=== PATIENT | female | born 1975 | race Two or more races ===

== ENCOUNTER → 2017-12-14 | Outpatient (CLI) | payer BC ==
--- NOTE | 2017-12-14 21:46 | CONS ---
CONSULTATION [facility] from [facility] REASON FOR EVALUATION: Sleep apnea. HISTORY OF PRESENT ILLNESS: 42-year-old female patient, obese with chronic fatigue and sleepiness. The patient has loud snoring and she feels unrested all the time. She has gained around 30 pounds over the past 5 years. The patient recently was having EGD by Dr. Garcia and she was noted to have prolonged apneas. This raised suspicion for obstructive sleep apnea further. In addition, she has had a spine evaluation by Neurosurgery regarding chronic cervical spine disease and she also mentioned also at a neurosurgical evaluation she may potentially have sleep apnea and she was requested further evaluation. She has occasional grinding of the teeth. She has been going to bed around 9:30 pm, wakes up at 5:00 a.m. in the morning. She has chronic pain in her neck, hips and shoulder. She prefers to sleep on her side with a flat pillow. No history of any motor vehicle accidents because of feeling sleepy and tired. No other new complaints otherwise. PAST MEDICAL HISTORY: Obesity, hypertension, hiatal hernia, cervical spine disease/degenerative disc disease. SURGICAL HISTORY: Includes EGD, cholecystectomy, tubal ligation, bilateral plantar fasciitis, right arm fracture and wisdom teeth pulling. ALLERGIES: Not known. FAMILY HISTORY: Negative for sleep apnea. SOCIAL HISTORY: The patient is a nonsmoker. No history of alcohol. No history of IV drugs. She works in a doctor's office. REVIEW OF SYSTEMS: 12-point review of system was done. Positive findings are mentioned above in history of present illness. In addition, there is no history of any nocturia. No history of any sleepwalking or sleep talking. She occasionally wakes up with dry mouth. She has no anxiety or panic attacks. No palpitation. No nocturnal heartburn. No restlessness in lower extremities. No claustrophobia. No anxiety and no depression. No sexual dysfunction. PHYSICAL EXAMINATION: Present vital signs, BP is 142/87, pulse 85, respirations 16, temperature 98.4, saturation 99% on room air. Mound score of 15. BMI 41.3. Neck size 16-1/4, weight is 237. Height is 5 feet 3 inches. General appearance calm comfortable obese. Head is atraumatic, normocephalic. NECK: Supple. Mallampati class IV. There is no goiter or neck mass. Slight overbite. LUNGS: Clear to auscultation. HEART: Sounds regular rhythm. Normal S1, S2. No S3, S4. No murmurs. ABDOMEN: Soft, nontender. No organomegaly. No direct tenderness, rebound or guarding. EXTREMITIES: No edema. No cyanosis or clubbing. Neurologic: AO x3. There is no focal neurological deficits. PSYCHIATRIC: Appropriate mood and affect. IMPRESSION: 1. Loud snoring along with witnessed apneas at the time of the procedures being done under conscious sedation which raises the suspicion for obstructive sleep apnea. The patient has chronic tiredness and sleepiness with an Mound score of 15. Obstructive sleep apnea clinically suspected and the patient will need further investigation. 2. Obesity BMI of 41.3. 3. Cervical disc disease. 4. Hiatal hernia. 5. Hypertension. PLAN: 1. Encourage weight loss. 2. Proceed with a screening polysomnogram to investigate the patient for obstructive sleep apnea. CPAP may be needed if the patient is confirmed to have obstructive sleep apnea. ALEK / NATON: [id number] /
== END | disposition home or self-care (01) ==
LOC: SLEEP 13:29
PROVIDERS: ATTEND Internal Medicine Critical Care Medicine
DX: Z53.9 Procedure and treatment not carried out, unspecified reason (principal)

== ENCOUNTER → 2018-05-10 | Outpatient (CLI) | payer BC ==
--- NOTE | 2018-05-10 20:25 | PN ---
PROGRESS NOTE This is a 42-year-old female patient diagnosed having obstructive sleep apnea with an AHI of 18, worse during REM. The patient is currently being treated with CPAP and she is coming in for a compliancy check. Her current CPAP pressure is at 8 cm of water with a C-flex of 3. I checked the patient's compliance data and I am very much impressed with her response. Her average is around 6.2 hours of CPAP use per night. Her AHI is down to 0.6, leak factor 6 L per minute, CPAP use for more than 4 hours 27 out of 30. The patient is doing well. The patient has no major hypersomnia or sleepiness during the day. Her sleep quality is improved and she has no specific complaints. She is using AirFit P10 nose pillows. No nighttime arousals for any reasons. Her sleep quality has improved considerably for the time being. Her current Redway score is down to 9. She is also trying to lose weight. She has been successful and she gained only 3 pounds since her last evaluation here in the office. REVIEW OF SYSTEMS: Twelve-point review of systems was done. Positive findings are all mentioned above in the history of present illness. PHYSICAL EXAMINATION: BP is 110/76, pulse 77, respirations 16, temperature 98.6. Weight is 240, saturation 99% on room air. Redway score is 9. GENERAL APPEARANCE: Calm, comfortable. Head is atraumatic, normocephalic. NECK: Supple. There is no JVD. No goiter or neck masses. LUNGS: Diminished breath sounds bilaterally; otherwise clear. Heart sounds are regular rate and rhythm. Normal S1, S2. No S3, S4. No murmurs. ABDOMEN: Soft, nontender. No organomegaly. EXTREMITIES: No edema. No cyanosis or clubbing. NEUROLOGIC: Alert and oriented x3. There is no focal neurological deficit. PSYCHIATRIC: Negative for anxiety or depression. IMPRESSION: 1. Symptomatic obstructive sleep apnea, moderate in severity, with an AHI of 18, worse during REM. 2. Chronic hypersomnia with an Redway score of 15; improved. 3. Hypertension. 4. Hiatal hernia. PLAN: 1. Encourage weight loss. 2. Continue CPAP at the same level of pressure of 8 cm of water. 3. Continue same mask interface. 4. Encourage weight loss. 5. See me back in a year's time, earlier if needed. Her treatment is successful and the patient is benefitting from the treatment. MMODL / IJN: [id number] /
== END | disposition home or self-care (01) ==
LOC: SLEEP 13:58
PROVIDERS: ATTEND Internal Medicine Critical Care Medicine
DX: G47.33 Obstructive sleep apnea (adult) (pediatric) (principal); I10 Essential (primary) hypertension; K44.9 Diaphragmatic hernia without obstruction or gangrene; Z99.89 Dependence on other enabling machines and devices